=== PATIENT | female | born 1960 | race African-American/Black ===

== ENCOUNTER 2017-12-03 18:53 | Emergency (ER) | payer OTHER ==
--- NOTE | 2017-12-03 19:35 | Cat Scan Report ---
FINAL REPORT EXAM: CT HEAD/BRAIN WO CON HISTORY: neuro deficits < 6hrs or sx present upon awakening TECHNIQUE: Axial noncontrast CT images the brain were performed. Total exam DLP 920.48 mGy-cm FINDINGS: There is mild cortical atrophy. No acute extra-axial fluid collection. No midline shift or mass effect. No intraparenchymal blood products or extra-axial fluid collection. Normal ruff-white differentiation. Unremarkable posterior fossa. Conjugate gaze. Patient is slightly canted in the gantry. Clear imaged paranasal sinuses. No displaced calvarial fracture. IMPRESSION: No acute transcortical infarct, bleed, or mass identified. Findings are called to the referring clinician on 12/03/2017 at 1927 hours by [facility] Staff, OSR Kerrie Lim. Dr. Fontenot was advised. If symptoms persist and there are no contraindications, recommend MRI brain with diffusion-weighted imaging.
--- NOTE | 2017-12-03 19:40 | Emergency Department Report ---
HPI - General Time Seen by Provider: 12/03/17 19:29 - HPI HPI: Room 1 The patient is a 57-year-old female presenting with a chief complaint of right- sided facial weakness. The patient states yesterday her lips were "swelling." The patient states she hadn't noticed anything abnormal with her face this morning (patient states she wasn't paying attention). Today at work at 15:00 the patient states a customer told her that her face looked on and that she should go to the hospital. Patient denies dizziness or numbness. Patient denies any extremity weakness or symptoms. Patient complains of pain at her right ear. Location: Face Duration: [See above] Quality: Weakness Severity: Moderate Modifying factors: [see above] Context: [see above] Mode of transportation: [not driving] ED Past Medical Hx - Past Medical History Previous Medical History?: No - Surgical History Past Surgical History?: No - Family History Family history: no significant - Social History Smoking Status: Never Smoker Substance Use Type: None - Medications Home Medications: Home Medications Medication Instructions Recorded Confirmed Last Taken Type Glycerin/Propylene Glycol 2 drops OD PRN #15 ml 12/03/17 Unknown Rx [Artificial Tears Drops] predniSONE [Deltasone] 60 mg PO QDAY #21 tab 12/03/17 Unknown Rx ED Review of Systems ROS: Stated complaint: FACE DROOPING Other details as noted in HPI Constitutional: no symptoms reported Eyes: other (tearing) ENT: ear pain Respiratory: no symptoms reported Cardiovascular: denies: chest pain Gastrointestinal: denies: abdominal pain Genitourinary: denies: dysuria Musculoskeletal: denies: back pain Neurological: weakness. denies: headache, numbness Physical Exam - Physical Exam Physical Exam: GENERAL: The patient is well-developed well-nourished female sitting on stretcher not appearing to be in acute distress. [] HEENT: Normocephalic. Atraumatic. Extraocular motions are intact. Patient has moist mucous membranes. NECK: Supple. Trachea midline CHEST/LUNGS: Clear to auscultation. There is no respiratory distress noted. HEART/CARDIOVASCULAR: Regular. There is no tachycardia. There is no gallop rub or murmur. ABDOMEN: Abdomen is soft, nontender. Patient has normal bowel sounds. There is no abdominal distention. SKIN: There is no rash. There is no edema. There is no diaphoresis. NEURO: The patient is awake, alert, and oriented. The patient is cooperative. Cranial nerves II through XII grossly intact with exception of cranial nerve VII on the right. It is no forehead sparing. There is right facial droop. [employer] 5+/5 bilaterally, sensation normal throughout.. The patient has normal speech MUSCULOSKELETAL: There is no evidence of acute injury. ED Course - Consultations Consultation #1: 12/03/17 19:35 Tele-neurology paged and case discussed with Dr. Hanna 12/03/17 19:[address] Damon after evaluation. Believes patient has Mireles's palsy recommends treating with prednisone 60 mg daily for 5 days then taper by 10 mg daily for total of 10 days ED Medical Decision Making - Lab Data Result diagrams: 12/03/17 19:24 12/03/17 19:24 - EKG Data -: EKG Interpreted by Ms EKG shows normal: sinus rhythm Rate: normal - EKG Data When compared to previous EKG there are: previous EKG unavailable Interpretation: other (no ischemic changes seen) - Radiology Data Radiology results: report reviewed (CT head), image reviewed (CT head) [facility] [address] [place] [address] Cat Scan Report Signed Patient: ALEXANDRA REED MR#: [id number] : 1960 Acct:[id number] Age/Sex: 57 / F ADM Date: 12/03/17 Loc: ED Attending Dr: Ordering Physician: SEAN BENITEZ MD Date of Service: 12/03/17 Procedure(s): CT head/brain wo con Accession Number(s): [id number] cc: SEAN BENITEZ MD FINAL REPORT EXAM: CT HEAD/BRAIN WO CON HISTORY: neuro deficits lt; 6hrs or sx present upon awakening TECHNIQUE: Axial noncontrast CT images the brain were performed. Total exam DLP 920.48 mGy-cm FINDINGS: There is mild cortical atrophy. No acute extra-axial fluid collection. No midline shift or mass effect. No intraparenchymal blood products or extra-axial fluid collection. Normal ruff-white differentiation. Unremarkable posterior fossa. Conjugate gaze. Patient is slightly canted in the gantry. Clear imaged paranasal sinuses. No displaced calvarial fracture. IMPRESSION: No acute transcortical infarct, bleed, or mass identified. Findings are called to the referring clinician on 12/03/2017 at 1927 hours by [facility] Staff, OSR Kerrie Lim. Dr. Benitez was advised. If symptoms persist and there are no contraindications, recommend MRI brain with diffusion-weighted imaging. Transcribed By: MP Dictated By: GENNY VARGAS Electronically Authenticated By: GENNY VARGAS Signed Date/Time: 12/03/171928 DD/ 28 TD/TT: 12/03/171928 - Medical Decision Making Up-to-date recommends treating Mireles's palsy with prednisone 60-80 mg daily for 1 week. Patient will be given a prescription in accordance with this recommendation - Differential Diagnosis Mireles's palsy, CVA Critical care attestation.: If time is entered above; I have spent that time in minutes in the direct care of this critically ill patient, excluding procedure time. ED Disposition Clinical Impression: Mireles's palsy Disposition: - TO HOME OR SELFCARE Is pt being admited?: No Does the pt Need Aspirin: No Condition: Stable Instructions: Mireles Palsy (ED) Additional Instructions: Return to the emergency department immediately should you develop worsening symptoms, fever, inability to tolerate food or liquid or any other concerns. Prescriptions: Glycerin/Propylene Glycol [Artificial Tears Drops] 2 drops OD PRN #15 ml predniSONE [Deltasone] 60 mg PO QDAY #21 tab Referrals: [facility] [Provider Group] - 2-3 Days (Please follow up with your primary physician.) Time of Disposition: 20:16
[2017-12-03 19:46] LABS: Basophils % (Auto) 0.3 % (0.0-1.8); Eosinophils # (Auto) 0.1 K/mm3 (0.0-0.4); Eosinophils % (Auto) 1.4 % (0.0-4.3); Hematocrit 39.1 % (30.3-42.9); Hemoglobin 13.5 gm/dl (10.1-14.3); INR 0.89 (0.87-1.13); Lymphocytes # (Auto) 2.6 K/mm3 (1.2-5.4); Lymphocytes % (Auto) 41.3 % (13.4-35.0); Mean Corpuscular HGB Conc 35 % (30-34); Mean Corpuscular Hemoglobin 30 pg (28-32); Mean Corpuscular Volume 88 fl (79-97); Monocytes # (Auto) 0.3 K/mm3 (0.0-0.8); Monocytes % (Auto) 5.3 % (0.0-7.3); Platelet Count 290 K/mm3 (140-440); Red Blood Count 4.47 M/mm3 (3.65-5.03)
[2017-12-03 19:47] LABS: Partial Thromboplastin Time 24.1 Sec. (24.2-36.6)
[2017-12-03 19:55] LABS: BUN/Creatinine Ratio 27; Blood Urea Nitrogen 16 mg/dL (7-17); Calcium 9.3 mg/dL (8.4-10.2); Hemolysis Index 4
[2017-12-03 23:56] VITALS: BP 140/80
== END 2017-12-03 20:28 | disposition home or self-care (01) ==
LOC: ED 18:53
DX: G51.0 Bell's palsy (principal); Z79.899 Other long term (current) drug therapy
CPT/HCPCS: 36415; 70450; 80048; 82962; 84484; 85025; 85610; 85670; 85730; 93005; 93010

== ENCOUNTER 2017-12-19 13:48 | Emergency (ER) | payer OTHER ==
[2017-12-19 14:06] VITALS: BP 127/76
--- NOTE | 2017-12-19 14:57 | Emergency Department Report ---
Chief Complaint: Medical Clearance Stated Complaint: REFILL Time Seen by Provider: 12/19/17 14:50 - HPI History of Present Illness: 57-year-old female who was here a week ago for Mireles's palsy. Patient is now able to move her face however she is noted over the last 2 days facial swelling. Patient was given prednisone 60 mg a day for 7 days. Patient's taken this entire prescription. Patient again is able to move her face currently says that she her face just feels tight. - ROS Review of Systems: All other systems are reviewed and are negative - Exam Vital Signs: Vital Signs 12/19/17 14:03 Temperature 97.7 F Pulse Rate 84 Respiratory 16 Rate Blood Pressure 127/76 O2 Sat by Pulse 98 Oximetry Physical Exam: Of patient's able to move her entire face symmetrically. She is able to smile she has good wrinkles to her forehead that are going across bilaterally. He is able to close her eyes tightly. Patient does have some mild edema to the face. MSE screening note: Focused history and physical exam performed. Due to findings the following was ordered: ED Medical Decision Making - Medical Decision Making The patient instructed to stop her prednisone at this time. She'll be discharged home. ED Disposition for MSE Clinical Impression: Facial edema Disposition: DC-01 TO HOME OR SELFCARE Is pt being admited?: No Does the pt Need Aspirin: No Condition: Stable Additional Instructions: Your Mireles's palsy appears to have resolved. Your facial swelling should improve slowly after stopping the prednisone. Time of Disposition: 14:56
== END 2017-12-19 15:13 | disposition home or self-care (01) ==
LOC: ED 13:48
DX: R22.0 Localized swelling, mass and lump, head (principal)
CPT/HCPCS: 99282